=== PATIENT | male | born 1990 | race African-American/Black ===

== ENCOUNTER 2024-11-23 05:45 | Emergency (ER) | payer MEDICAID ==
[~2024-11-23] VITALS: Ht 190.5 cm; Wt 100.7 kg
[2024-11-23] MEDS ORDERED: PANTOPRAZOLE 40 MG VIAL ONE (06:30)
[2024-11-23] MEDS ORDERED: MAG HYDROX/AL HYDROX/SIMETH 30 ML UDC ONE (06:30)
[2024-11-23] MEDS ORDERED: PANTOPRAZOLE 40 MG VIAL IV ONE (06:30)
[2024-11-23] MEDS ORDERED: LIDOCAINE VISCOUS 2% UD 15 ML UDC ONE (06:30)
[2024-11-23] MEDS: LIDOCAINE VISCOUS 2% UD 15 ML UDC MM ONE (06:41)
[2024-11-23] MEDS: MAG HYDROX/AL HYDROX/SIMETH 30 ML UDC PO ONE (06:41)
[2024-11-23] MEDS ORDERED: PANTOPRAZOLE 40 MG TABLET.DR PO ONE (06:44)
[2024-11-23] MEDS ORDERED: PANT40TA2 PO (06:46)
[2024-11-23] MEDS: PANTOPRAZOLE 40 MG TABLET.DR PO ONE (06:47)
[2024-11-23 07:31] VITALS: BP 139/77; TEMP 98.6; O2SAT 99
== END 2024-11-23 07:32 | disposition left against medical advice (07) ==
LOC: ER 05:49
DX: K92.0 Hematemesis (principal); R10.13 Epigastric pain; Z79.899 Other long term (current) drug therapy
CPT/HCPCS: 99284; 93005; J2470